=== PATIENT | male | born 1975 | race Two or more races ===

== ENCOUNTER 2019-09-07 15:04 | Inpatient (IN) | payer MEDICAID, OTHER ==
[~2019-09-07] VITALS: Ht 165.1 cm; Wt 76.2 kg
[2019-09-07 16:04] LABS: Basophils # (auto) 0 10 ^3/uL (0-0.2); Basophils % (auto) 0.5 % (0.0-2.0); Eosinophils # (auto) 0 10 ^3/uL (0-0.8); Eosinophils % (auto) 0.5 % (0.0-7.0); Hematocrit 44.9 % (41.0-53.0); Hemoglobin 15.7 g/dL (13.5-17.5); Lymphocytes # (auto) 2.1 10 ^3/uL (0.4-5.4); Lymphocytes % (auto) 25.2 % (10.0-50.0); Mean Corpuscular Hemoglobin 30.1 pg (28.0-32.0); Mean Corpuscular Volume 86.1 fL (80.0-100.0); Monocytes # (auto) 0.5 10 ^3/uL (0-1.3); Neutrophils # (auto) 5.7 10 ^3/uL (1.6-8.6); Neutrophils % (auto) 67.8 % (37.0-80.0); Nucleated Red Blood Cells % 0.2 %; Platelet Count (auto) 400 10^3/uL (140-450); Red Blood Cells 5.21 10^6/uL (4.5-5.90); White Blood Cell 8.4 10^3/uL (4.4-10.8)
[2019-09-07 16:06] LABS: Alanine Aminotransferase 18 U/L (16-61); Albumin 3.8 g/dL (3.4-5.0); Anion Gap 8 (5-15); Aspartate Aminotransferase 9 U/L (15-37); BUN/Creatinine Ratio 11.9; Blood Urea Nitrogen 10 mg/dL (7-18); Calcium 8.7 mg/dL (8.5-10.1); Carbon Dioxide 26 mmol/L (21-32); Chloride 100 mmol/L (98-107); GFR African American 127 mL/min; GFR Non-African American 105 mL/min; Glucose 373 mg/dL (74-106); Potassium 3.7 mmol/L (3.5-5.1); Sodium 134 mmol/L (136-145)
[2019-09-07 16:10] LABS: Alkaline Phosphatase 88 U/L (45-117); Bilirubin, Total 0.4 mg/dL (0.2-1.0); Total Protein 7.9 g/dL (6.4-8.2)
[2019-09-07] MEDS ORDERED: LORazepam 2MG/ML-1ML VIAL IV PRN (17:45)
[2019-09-07] MEDS ORDERED: DEXTROSE (50%) 50ML SYRG IV PRN (17:45)
[2019-09-07] MEDS ORDERED: HYDROcodone-ACET 5/325MG TAB PO PRN (17:45)
[2019-09-07] MEDS ORDERED: hydrALAZINE HCL 20 MG/ML VL IV PRN (17:45)
[2019-09-07] MEDS ORDERED: MORPHINE SULF INJ 2 MG/ML SYRINGE 1ML IV PRN ×2 (17:45)
[2019-09-07] MEDS ORDERED: ACETAMINOPHEN 500 MG TAB PO PRN (17:45)
[2019-09-07] MEDS ORDERED: ONDANSETRON HCL 4 MG/2 ML VIAL IV PRN (17:45)
[2019-09-07] MEDS ORDERED: NITROGLYCERIN 0.4 MG SL TAB SL PRN (17:45)
[2019-09-07] MEDS: INSULIN 70/30 1unit/0.01ml Susp (100units/ml) SC SCH ×2 (18:00→18:15)
[2019-09-07] MEDS: ASPirin-EC 81 mg tab PO SCH (18:08)
[2019-09-07] MEDS: FAMOTIDINE 20 MG TAB PO SCH (18:08)
[2019-09-07 18:37] LABS: Urine Bacteria NONE SEEN /hpf (None Seen); Urine Blood Negative /uL (Negative); Urine Specific Gravity 1.035 (1.001-1.035); Urine WBC None Seen /hpf (0 - 3)
[2019-09-07 18:55] LABS: Alcohol, Urine < 3.0 mg/dL (0-5); Amphetamine Screen, Urine POSITIVE (NEGATIVE); Barbiturate Scree,Urine NEGATIVE (NEGATIVE); Benzodiazephine Screen, Urine POSITIVE (NEGATIVE); Cannabinoid Screen, Urine NEGATIVE (NEGATIVE); Cocaine Screen, Urine POSITIVE (NEGATIVE); Opiate Scree,Urine NEGATIVE (NEGATIVE); Phencyclidine Screen, Urine NEGATIVE (NEGATIVE)
--- NOTE | 2019-09-07 20:17 | NUR ---
Telemetry admit from SARBJIT BRANDON admitted to Telemetry unit. Patient oriented to JAVIER MEJIA, primary RN, unit, room, bed, and unit policies regarding patient care and visiting hours. Patient now on continuous telemetry monitoring, tele box #[id number] and telemetry reading on arrival to unit is SR. Patient weighed by bedscale and encouraged to call if they need something. Patient verbalized concern regarding the 70 feds that have been following him around today. Informed patient that we are unaware of any feds at this facility. All questions and concerns addressed, patient verbalized understanding. Bed rails up x2, bed locked in lowest position, call light within reach.
[2019-09-07 20:30] VITALS: BP 130/88
[2019-09-07] MEDS: METOPROLOL TARTRATE 25 MG TAB PO SCH (21:31)
[2019-09-07] MEDS: InsuLIN REG 1unit/0.01ml Soln (100units/ml) SC SCH (21:31)
[2019-09-07] MEDS: ACCU-CHEK COMFORT CURVE STRIP VI SCH (21:31)
[2019-09-07] MEDS ORDERED: ATORVASTATIN 20 MG TAB PO SCH (22:00)
[2019-09-07 23:00] VITALS: BP 130/88
[2019-09-08] MEDS ORDERED: INSUINJ18 SC (01:51)
[2019-09-08] MEDS ORDERED: ALPR1TAB2 PO (01:51)
[2019-09-08 04:56] VITALS: BP 91/58
[2019-09-08 05:46] LABS: Basophils # (auto) 0.1 10 ^3/uL (0-0.2); Basophils % (auto) 0.7 % (0.0-2.0); Eosinophils # (auto) 0.2 10 ^3/uL (0-0.8); Eosinophils % (auto) 2.3 % (0.0-7.0); Hematocrit 44.4 % (41.0-53.0); Hemoglobin 15.1 g/dL (13.5-17.5); Lymphocytes # (auto) 3.8 10 ^3/uL (0.4-5.4); Lymphocytes % (auto) 47.8 % (10.0-50.0); Mean Corpuscular Hemoglobin 29.8 pg (28.0-32.0); Mean Corpuscular Hgb Conc. 34.1 g/dL (32.0-36.0); Mean Corpuscular Volume 87.3 fL (80.0-100.0); Monocytes # (auto) 0.6 10 ^3/uL (0-1.3); Monocytes % (auto) 7.8 % (0.0-12.0); Neutrophils # (auto) 3.3 10 ^3/uL (1.6-8.6); Neutrophils % (auto) 41.4 % (37.0-80.0); Nucleated Red Blood Cells % 0.2 %; Platelet Count (auto) 393 10^3/uL (140-450); Red Blood Cells 5.08 10^6/uL (4.5-5.90); Red Cell Distribution Width 13.3 % (11.8-14.3)
[2019-09-08 06:03] LABS: INR 1.01 (0.9-1.15)
[2019-09-08 06:11] LABS: Potassium 3.8 mmol/L (3.5-5.1)
[2019-09-08] MEDS: ACCU-CHEK COMFORT CURVE STRIP VI SCH ×3 (06:13→17:00)
[2019-09-08] MEDS: InsuLIN REG 1unit/0.01ml Soln (100units/ml) SC SCH ×3 (06:14→17:00)
[2019-09-08 06:17] LABS: BUN/Creatinine Ratio 14.3; Calcium 8.6 mg/dL (8.5-10.1)
[2019-09-08] MEDS: INSULIN 70/30 1unit/0.01ml Susp (100units/ml) SC SCH (08:00)
--- NOTE | 2019-09-08 08:00 | NUR ---
RECEIVED PATIENT ALERT AND ORIENTED X4, NOT IN DISTRESS, CLEAR LS IN BILATERAL LUNG LOBES, RR=18 MPJ=450%, DEEP BREATHING AND COUGHING WAS ENCOURAGED, DEMONSTRATED WELL AND VERBALIZED UNDERSTANDING, SR ON TELE MONITOR, DENIED CP AND SOB, ABDOMEN SOFT WITH ACTIVE BS, TOLERATED 100% OF PROVIDED BREAKFAST TRAY, LAST BM=09/07/19 REPORTED, SKIN INTACT WARM TO TOUCH, REDIAL AND PEDAL PULSES PALPABLE, CAP REFILL <3 SECONDS, RESTING ON BED, HEAD OF BED ELEVATED, BED ON LOW POSITION, RAILS UP X2, CALL LIGHT ON REACH, PENDING TELE PSYCH CONSULT, WILL CONTINUE MONITORING.
[2019-09-08 09:11] VITALS: BP 131/73
[2019-09-08] MEDS: ASPirin-EC 81 mg tab PO SCH (11:08)
[2019-09-08] MEDS: FAMOTIDINE 20 MG TAB PO SCH (11:09)
[2019-09-08] MEDS: METOPROLOL TARTRATE 25 MG TAB PO SCH (11:10)
[2019-09-08 13:06] VITALS: BP 116/72
--- NOTE | 2019-09-08 15:19 | NUR ---
TELE PSYCH CONSULT WAS DONE, TOLERATED AND COOPERATED WELL, NOT IN DISTRESS, DENIED PAIN, AMBULATING IN THE ROOM , SITTING ON THE CHAIR AND TALKING ON THE PHOE AT THIS MOMENT, WILL CONTINUE MONITORING.
[2019-09-08] MEDS ORDERED: BENA10TA9 PO (15:32)
[2019-09-08] MEDS ORDERED: ASPI-498 PO (15:32)
[2019-09-08] MEDS ORDERED: INSUINJ49 SC (15:32)
--- NOTE | 2019-09-08 16:00 | NUR ---
SITTING ON THE CHAIR, COMMUNICATING ON THE PHONE, NOT IN DISTRESS, DENIED PAIN, PENDING ECHO AND STRESS TEST IN AM ORDERED, SISTER WAS CALLED REQUESTED VERIFIED WITH THE PATIENT AND UPDATED REQUESTED, WILL CONTINUE MONITORING.
[2019-09-08 16:29] VITALS: BP 129/85
--- NOTE | 2019-09-08 17:32 | NUR ---
AMA PAPER PROVIDED REQUESTED, SIGNED AMA, D/C TELE AND IV SITE, TOLERATED WELL, NOT IN DISTRESS, DENIED PAIN, WC PROVIDED, WENT WALKING, TOOK ALL BELONGINGS AND LEFT NOTHING BEHIND.
[2019-09-08] MEDS ORDERED: INSULIN 70/30 1unit/0.01ml Susp (100units/ml) SC SCH (18:00)
[2019-09-08] MEDS ORDERED: METOPROLOL TARTRATE 25 MG TAB PO SCH (22:00)
--- NOTE | 2019-09-09 09:51 | NUR ---
assessment Patient left AMA prior to being assessed. Addendum: 09/09/19 at 0952 by Yanelis DALY Amended: Links added.
== END 2019-09-08 17:30 | disposition left against medical advice (07) | DRG 816 ==
LOC: ER 15:04 → TELE 15:05 → TELE-WESTW 20:12
PROVIDERS: ADMIT Nurse Practitioner Acute Care; ATTEND Internal Medicine
DX: T40.5X1A Poisoning by cocaine, accidental (unintentional), initial encounter (principal); E11.65 Type 2 diabetes mellitus with hyperglycemia; F29 Unspecified psychosis not due to a substance or known physiological condition; I10 Essential (primary) hypertension; E66.3 Overweight; E78.5 Hyperlipidemia, unspecified; F15.10 Other stimulant abuse, uncomplicated; Z79.4 Long term (current) use of insulin; Z79.82 Long term (current) use of aspirin; Z79.899 Other long term (current) drug therapy; Z83.3 Family history of diabetes mellitus; Y92.89 Other specified places as the place of occurrence of the external cause; F14.90 Cocaine use, unspecified, uncomplicated; Z68.28 Body mass index [BMI] 28.0-28.9, adult; Z53.29 Procedure and treatment not carried out because of patient's decision for other reasons; R07.89 Other chest pain; R00.0 Tachycardia, unspecified; F41.9 Anxiety disorder, unspecified
CPT/HCPCS: 36415; 71046; 80048; 80053; 80307; 81001; 82962; 83036; 83880; 84484; 85025; 85379; 85610; 85730; 86141; 93005; 93306; 96372; 96374; G0378; J1815

== ENCOUNTER 2020-02-03 06:12 | Emergency (ER) | payer MEDICAID ==
[~2020-02-03] VITALS: Ht 172.7 cm; Wt 72.6 kg
[~2020-02-03 06:12] MED LIST: ALPR1TAB2 PO; ASPI-498 PO; BENA10TA9 PO; INSUINJ49 SC
[2020-02-03 06:36] VITALS: BP 124/80
[2020-02-03 07:17] LABS: Basophils # (auto) 0.1 10 ^3/uL (0-0.2); Basophils % (auto) 0.7 % (0.0-2.0); Eosinophils # (auto) 0.1 10 ^3/uL (0-0.8); Eosinophils % (auto) 1.5 % (0.0-7.0); Hematocrit 40.7 % (41.0-53.0); Hemoglobin 13.8 g/dL (13.5-17.5); Lymphocytes # (auto) 2.2 10 ^3/uL (0.4-5.4); Lymphocytes % (auto) 27.9 % (10.0-50.0); Mean Corpuscular Hemoglobin 30.1 pg (28.0-32.0); Mean Corpuscular Volume 88.5 fL (80.0-100.0); Monocytes # (auto) 0.7 10 ^3/uL (0-1.3); Monocytes % (auto) 9.4 % (0.0-12.0); Neutrophils # (auto) 4.7 10 ^3/uL (1.6-8.6); Neutrophils % (auto) 60.5 % (37.0-80.0); Nucleated Red Blood Cells % 0.1 %; Platelet Count (auto) 424 10^3/uL (140-450); Red Cell Distribution Width 12.7 % (11.8-14.3); White Blood Cell 7.8 10^3/uL (4.4-10.8)
[2020-02-03 07:30] LABS: Albumin 3.8 g/dL (3.4-5.0); Anion Gap 8 (5-15); BUN/Creatinine Ratio 16.3; Blood Alcohol < 3.0 mg/dL (0-5); Blood Urea Nitrogen 17 mg/dL (7-18); Calcium 8.9 mg/dL (8.5-10.1); Carbon Dioxide 27 mmol/L (21-32); Chloride 99 mmol/L (98-107); GFR African American 99 mL/min; GFR Non-African American 82 mL/min; Glucose 303 mg/dL (74-106); Magnesium 2.4 mg/dL (1.6-2.6); Potassium 3.7 mmol/L (3.5-5.1); Sodium 134 mmol/L (136-145)
[2020-02-03 07:33] LABS: Alanine Aminotransferase 17 U/L (16-61); Alkaline Phosphatase 94 U/L (45-117); Aspartate Aminotransferase 17 U/L (15-37); Bilirubin, Total 0.7 mg/dL (0.2-1.0); Total Protein 7.3 g/dL (6.4-8.2)
== END 2020-02-03 07:47 | disposition left against medical advice (07) ==
LOC: ER 06:12
DX: R10.9 Unspecified abdominal pain (principal); R11.2 Nausea with vomiting, unspecified; Z53.21 Procedure and treatment not carried out due to patient leaving prior to being seen by health care provider
CPT/HCPCS: 36415; 80053; 80320; 83735; 83880; 85025

== ENCOUNTER 2021-12-31 16:38 | Emergency (ER) | payer MEDICAID ==
[~2021-12-31] VITALS: Ht 170.2 cm; Wt 75.0 kg
[~2021-12-31 16:38] MED LIST changes: +BENA10TA15 PO; -BENA10TA9 PO
[2021-12-31] MEDS ORDERED: KETOROLAC TROMETH 60MG/2ML VIAL IM ONE (20:45)
[2021-12-31] MEDS ORDERED: HYDR-4902 PO (20:50)
[2021-12-31 22:44] VITALS: BP 142/86
== END 2021-12-31 22:53 | disposition home or self-care (01) ==
LOC: EDBD 16:38 → ER 16:38
DX: S00.83XA Contusion of other part of head, initial encounter (principal); R07.81 Pleurodynia; M79.18 Myalgia, other site; E11.9 Type 2 diabetes mellitus without complications; I10 Essential (primary) hypertension; Y04.2XXA Assault by strike against or bumped into by another person, initial encounter; Y93.89 Activity, other specified; Y92.89 Other specified places as the place of occurrence of the external cause; Y99.8 Other external cause status
CPT/HCPCS: 70486; 71101; 82962; 96372; 99284; J1885